=== PATIENT | female | born 1940 | race Caucasian/White ===

== ENCOUNTER 2016-05-02 17:19 | Emergency (ER) | payer MEDICARE, OTHER | END 2016-05-03 01:47 | disposition home or self-care (01) | LOC: ER 17:19 | DX: S80.02XA Contusion of left knee, initial encounter (principal); W18.30XA Fall on same level, unspecified, initial encounter; Z91.81 History of falling; Y92.009 Unspecified place in unspecified non-institutional (private) residence as the place of occurrence of the external cause; R53.1 Weakness; E11.9 Type 2 diabetes mellitus without complications; Z79.84 Long term (current) use of oral hypoglycemic drugs; E03.9 Hypothyroidism, unspecified; I10 Essential (primary) hypertension; I25.10 Atherosclerotic heart disease of native coronary artery without angina pectoris; Z95.5 Presence of coronary angioplasty implant and graft; I25.2 Old myocardial infarction; Z79.82 Long term (current) use of aspirin; G20 Parkinson's disease | CPT/HCPCS: 36415; 71020; 80053; 80165; 81001; 85025; 93005 ==